=== PATIENT | female | born 1970 | race Caucasian/White ===

== ENCOUNTER 2021-04-10 19:24 | Emergency (ER) | payer SELFPAY ==
--- NOTE | 2021-04-10 20:22 | Consultation ---
History of Present Illness - Reason for Consult Consult date: 04/10/21 - History of Present Illness [facility] Consult Note # Demographics Consult Type: Acute Stroke Level 2 (4.5-24 hrs) Patient Location: Emergency Room First Name: Savanna Last Name: Arlene Date of : 1970 Age: 50 Gender: Female Time of Initial Page ( Time): 04/10/2021, 20:16 Time of Return Call ( Time): 04/10/2021, 20:16 # HPI History: 50yo woman who presents with right facial weakness numbness since yesterday. Associated Symptoms: no headache Quality: no slurred speech no weakness no word finding difficulty # Scores Time of exam and NIHSS (): 04/10/2021, 20:18 Level of Consciousness 1a: [0] = Alert; keenly responsive LOC Questions 1b: [0] = Answers both questions correctly LOC Commands 1c: [0] = Performs both tasks correctly Best Gaze 2: [0] = Normal Visual 3: [0] = No visual loss Facial Palsy 4: [1] = Minor paralysis Motor Arm Left 5a: [0] = No drift Motor Arm Right 5b: [0] = No drift Motor Leg Left 6a: [0] = No drift Motor Leg Right 6b: [0] = No drift Limb Ataxia 7: [0] = Absent Sensory 8: [0] = Normal Best Language 9: [0] = No aphasia Dysarthria 10: [0] = Normal Extinction and Inattention 11: [0] = No abnormality NIHSS Total: 1 # Exam Cranial Nerves: decreased eye closure and forehead furrowing # Assessment Impression: Enola Palsy # Plan Thrombolytic/Intervention: NOT IV Thrombolysis or IA Intervention candidate Intraarterial Exclusion: clinically not consistent with stroke Other: I have discussed my recommendations with the referring provider Additional Recommendations: conservative mgmt for bells palsy Medications and Allergies Allergies Allergy/AdvReac Type Severity Reaction Status Date / Time No Known Allergies Allergy Unverified 12/04/13 14:49 Home Medications Medication Instructions Recorded Confirmed Last Taken Type No Known Home Medications [No 12/06/13 12/06/13 Unknown History Reported Home Medications] Exam - Constitutional Vitals: Temp Pulse Resp BP Pulse Ox 99.1 F 74 12 151/79 96 04/10/21 20:08 04/10/21 20:08 04/10/21 20:08 04/10/21 20:08 04/10/21 20:08
[2021-04-10 20:33] LABS: Basophils # (Auto) 0.1 K/mm3 (0.0-0.1); Basophils % (Auto) 0.9 % (0.0-1.8); Eosinophils # (Auto) 0.3 K/mm3 (0.0-0.4); Eosinophils % (Auto) 3.9 % (0.0-4.3); Hematocrit 41.8 % (30.3-42.9); Lymphocytes # (Auto) 1.5 K/mm3 (1.2-5.4); Lymphocytes % (Auto) 22.5 % (13.4-35.0); Mean Corpuscular HGB Conc 34 % (30-34); Mean Corpuscular Volume 79 fl (79-97); Monocytes # (Auto) 0.4 K/mm3 (0.0-0.8); Monocytes % (Auto) 6.4 % (0.0-7.3); Platelet Count 247 K/mm3 (140-440); Red Blood Count 5.27 M/mm3 (3.65-5.03)
--- NOTE | 2021-04-10 20:40 | Cat Scan Report ---
CT head/brain wo con INDICATION / CLINICAL INFORMATION: 50 years Female; CODE STROKE [id number] rt SIDE DROOP LKW YESTERDAY. TECHNIQUE: Routine CT head without contrast. All CT scans at this location are performed using CT dos e reduction for ALARA by means of automated exposure control. COMPARISON: None. FINDINGS: BRAIN / INTRACRANIAL CONTENTS: The brain appears to demonstrate appropriate attenuation. The ventricu lar system is within normal limits in size and configuration. There is no clear CT evidence of acute intracranial hemorrhage or significant mass effect. ORBITS: No significant abnormality of visualized orbits. SINUSES / MASTOIDS: No significant abnormality in the visualized paranasal sinuses or mastoid air gage ls. CRANIOCERVICAL JUNCTION: No significant abnormality. ADDITIONAL FINDINGS: None. IMPRESSION: 1. There is no CT evidence of acute intracranial process. Signer Name: Narendra Wolfe MD Signed: 04/10/2021 8:36 PM Workstation Name: [id number]
[2021-04-10 20:44] LABS: INR 0.94 (0.87-1.13)
[2021-04-10 20:45] LABS: BUN/Creatinine Ratio 25; Blood Urea Nitrogen 10 mg/dL (7-17); Calcium 9.6 mg/dL (8.4-10.2); Hemolysis Index 10; Partial Thromboplastin Time 30.4 Sec. (24.2-36.6); Thrombin Time 17.4 Sec. (15.1-19.6)
--- NOTE | 2021-04-10 20:47 | Emergency Department Report ---
ED Neuro Deficit HPI - General Chief Complaint: Neuro Symptoms/Deficit Stated Complaint: FACIAL NUMBNESS Time Seen by Provider: 04/10/21 20:22 Source: patient Mode of arrival: Ambulatory Limitations: No Limitations - History of Present Illness Initial Comments: Patient is 50 years old female with no significant past medical history. Patient presented to the ER complaining of right facial numbness and weakness since last night. Patient denied any weakness, numbness or tingling sensation in her extremities. No slurred speech or ataxia. Patient denied any headache. Stroke protocol initiated in triage and patient moved to CT for stat CT brain which was negative for bleed or any other acute abnormalities. Stroke neurologist consulted and examined the patient. Dr. Matamoros stated that patient is Cornell's palsy and is not consistent with a stroke. -: Sudden, Last night Location: right face Presenting Symptoms: Present: Facial Droop/Numbness History of same: No Place: home Associated Symptoms: denies other symptoms - Related Data Home Medications: Home Medications Medication Instructions Recorded Confirmed Last Taken No Known Home Medications [No 12/06/13 12/06/13 Unknown Reported Home Medications] Allergies/Adverse Reactions: Allergies Allergy/AdvReac Type Severity Reaction Status Date / Time No Known Allergies Allergy Unverified 12/04/13 14:49 ED Review of Systems ROS: Stated complaint: FACIAL NUMBNESS Other details as noted in HPI Comment: All other systems reviewed and negative Constitutional: denies: chills, fever Respiratory: denies: cough, shortness of breath, SOB with exertion Cardiovascular: denies: chest pain, palpitations Gastrointestinal: denies: abdominal pain, nausea, vomiting Musculoskeletal: denies: back pain Neurological: denies: headache, weakness Psychiatric: denies: anxiety, depression, auditory hallucinations, visual nell lucinations ED Past Medical Hx - Past Medical History Previous Medical History?: No Hx Hypertension: No Hx Congestive Heart Failure: No Hx Diabetes: No Hx Deep Vein Thrombosis: No Hx Renal Disease: No Hx Sickle Cell Disease: No Hx Seizures: No Hx Asthma: No Hx COPD: No - Surgical History Past Surgical History?: No - Social History Smoking Status: Never Smoker Substance Use Type: None - Medications Home Medications: Home Medications Medication Instructions Recorded Confirmed Last Taken Type No Known Home Medications [No 12/06/13 12/06/13 Unknown History Reported Home Medications] ED Neuro Physical Exam - General Limitations: No Limitations General appearance: alert, in no apparent distress Suspected Stroke: Yes - Head Head exam: Present: atraumatic, normocephalic, normal inspection - Eye Eye exam: Present: normal appearance, PERRL - ENT ENT exam: Present: normal exam, normal orophraynx, mucous membranes moist - Neck Neck exam: Present: normal inspection, full ROM. Absent: tenderness, meningismus - Respiratory Respiratory exam: Present: normal lung sounds bilaterally - Cardiovascular Cardiovascular Exam: Present: regular rate, normal rhythm, normal heart sounds - GI/Abdominal GI/Abdominal exam: Present: soft, normal bowel sounds. Absent: distended, tenderness, guarding, rebound, rigid, organomegaly, mass, bruit, pulsatile mass, hernia - Extremities Exam Extremities exam: Present: normal inspection, full ROM, normal capillary refill - Back Exam Back exam: Present: normal inspection, full ROM. Absent: CVA tenderness (R), CVA tenderness (L) - Neurological Exam Neurological exam: Present: alert, oriented X3, normal gait, reflexes normal. Absent: CN II-XII intact, motor sensory deficit - NIHSS Assessment Interval: Baseline 1a. Level of Consciousness: alert/keenly responsive 1b. LOC Questions: answers both correctly 1c. LOC Commands: performs tasks correctly 2. Best Gaze: normal 3. Visual: no visual loss 4. Facial Palsy: minor paralysis 5b. Motor Arm Right: no drift 5a. Motor Arm Left: no drift 6a. Motor Leg Left: no drift 6b. Motor Leg Right: no drift 7. Limb Ataxia: absent 8. Sensory: normal 9. Best Language: no aphasia 10. Dysarthria: normal 11. Extinction/Inattention: no abnormality Total Score: 1 Stroke Severity: Minor Stroke - Psychiatric Psychiatric exam: Present: normal mood - Skin Skin exam: Present: warm, intact, normal color ED Course Vital Signs 04/10/21 04/10/21 20:08 20:31 Temperature 99.1 F 98.1 F Pulse Rate 74 76 Respiratory 12 18 Rate Blood Pressure 151/79 Blood Pressure 167/111 [Right] O2 Sat by Pulse 96 100 Oximetry - Lab Data Result diagrams: 04/10/21 20:25 Lab Results 04/10/21 Range/Units 20:25 WBC 6.6 (4.5-11.0) K/mm3 RBC 5.27 H (3.65-5.03) M/mm3 Hgb 14.0 (10.1-14.3) gm/dl Hct 41.8 (30.3-42.9) % MCV 79 (79-97) fl MCH 27 L (28-32) pg MCHC 34 (30-34) % RDW 16.0 H (13.2-15.2) % Plt Count 247 (140-440) K/mm3 Lymph % (Auto) 22.5 (13.4-35.0) % [place] % (Auto) 6.4 (0.0-7.3) % Eos % (Auto) 3.9 (0.0-4.3) % Baso % (Auto) 0.9 (0.0-1.8) % Lymph # (Auto) 1.5 (1.2-5.4) K/mm3 [place] # (Auto) 0.4 (0.0-0.8) K/mm3 Eos # (Auto) 0.3 (0.0-0.4) K/mm3 Baso # (Auto) 0.1 (0.0-0.1) K/mm3 Seg Neutrophils % 66.3 (40.0-70.0) % Seg Neutrophils # 4.4 (1.8-7.7) K/mm3 - EKG Data -: EKG Interpreted by Me - Radiology Data Radiology results: report reviewed - Medical Decision Making Patient is 50 years old female with no significant past medical history. Patient presented to the ER complaining of right facial numbness and weakness since last night. Patient denied any weakness, numbness or tingling sensation in her extremities. No slurred speech or ataxia. Patient denied any headache. Stroke protocol initiated in triage and patient moved to CT for stat CT brain which was negative for bleed or any other acute abnormalities. Stroke neurologist consulted and examined the patient. Dr. Matamoros stated that patient is Cornell's palsy and is not consistent with a stroke. Patient advised to follow-up with her primary care physician in the next 2 to 3 days and to return to the ER if she develop any new symptoms. Critical care attestation.: If time is entered above; I have spent that time in minutes in the direct care of this critically ill patient, excluding procedure time. ED Disposition Clinical Impression: Cornell's palsy, Weakness on right side of face Disposition: DC- TO HOME OR SELFCARE Is pt being admited?: No Condition: Stable Instructions: Cornell Palsy, Adult Referrals: MARIANNE SHRESTHA MD [Staff Physician] - 3-5 Days Forms: Work/School Release Form(ED)
[2021-04-10 21:51] VITALS: BP 131/84
== END 2021-04-10 21:50 | disposition home or self-care (01) ==
LOC: ED 19:24
DX: G51.0 Bell's palsy (principal)
CPT/HCPCS: 36415; 70450; 80048; 84484; 85025; 85610; 85670; 85730